=== PATIENT | male | born 1990 | race Caucasian/White ===

== ENCOUNTER → 2021-11-25 | Outpatient (CLI) | payer OTHER ==
--- NOTE | 2021-11-25 12:14 | RAD ---
EXAMINATION: Upper and lower extremity pressure measurements of ankle/brachial index. INDICATION: Foot pain after surgery, peripheral arterial disease FINDINGS: The ankle/brachial index on the right side is 1.1, and on the left is 1.0. IMPRESSION: Normal HILDA, bilaterally. Electronically signed by: Wenceslao Mckeon MD (11/25/2021 12:12 PM) [id number]
--- NOTE | 2021-11-25 12:33 | RAD ---
Bilateral lower extremity arterial ultrasound History: : 31 years Male Reason: POST LEFT FOOT SURGERY/NERVE DAMAGE/PAIN, peripheral arterial dise ase Findings: Multiple grayscale, color, and duplex spectral analysis sonographic images were acquired of the lower extremity arteries. COMPARISON: None. FINDINGS: Grayscale evaluation of the femoropopliteal segments demonstrate mild scattered intimal plaque compat ible with mild peripheral arterial disease. Color Doppler demonstrate patent arterial segments from the END POLISHER to dorsalis pedis and posterior tibia l arteries. Waveforms: Right LE: Triphasic throughout Left LE: Triphasic throughout Velocities: Within normal range bilaterally. Impression: No evidence of high-grade stenosis in bilateral lower extremity arteries. Electronically signed by: Wenceslao Mckeon MD (11/25/2021 12:31 PM) [id number]
== END ==
LOC: US 10:23
PROVIDERS: ATTEND Family Medicine
DX: Z02.71 Encounter for disability determination (principal); G60.9 Hereditary and idiopathic neuropathy, unspecified; M24.675 Ankylosis, left foot; Z96.698 Presence of other orthopedic joint implants
CPT/HCPCS: 93922; 93925